=== PATIENT | female | born 1940 | race Caucasian/White ===

== ENCOUNTER 2016-11-09 21:14 | Inpatient (IN) | payer OTHER ==
--- NOTE | ~2016-11-09 | DS ---
Discharge Summary [facility] [address] [place]. [address] NAME: PENNIE EPPS : 39 STATUS : ADM IN PAT#: [id number] AGE: 76 ADM/REG DATE : 11/09/16 MR#: [id number] REPORT SERV DATE: 11/14/16 DICTATED BY: MARICHUY ALEXANDER DATE: 11/13/16 REPORT STATUS : Draft TRANSCRIBED BY: MODL DATE: 11/13/16 ADMISSION DATE: 11/09/2016 DISCHARGE DATE: 11/13/2016 CONSULTANTS: Cedric Lewis M.D., Neurology; Bartolo Haney M.D., Vascular Surgery. DISCHARGE DIAGNOSES: 1. Acute ischemic left thalamic stroke. 2. Diabetes mellitus type 2 with A1c 6.2%. 3. Hypertension. 4. Peripheral arterial disease with 70% stenosis, right internal carotid artery. 5. Status post repair of right hip fracture, August 2016. 6. Cigarette smoker. 7. Hypertension. HISTORY: This patient had in August 2016 surgery reportedly at [facility] for fractured right hip. She had gone to rehab. She then several days prior to this admission had some weakness, right upper and right lower extremity. Eventually was taken to the emergency room at [place] at [facility]. Imaging there included MRI of the brain, which revealed an acute infarction, lacunar-type left thalamus 5 x 7 mm, also more chronic appearing lacunar infarctions within the left thalamus and the right thalamus. No evidence for hemorrhage, mass effect, or midline shift. There was a request for the patient to transfer here to our facility. Here, she had a CTA of the neck revealing 70% stenosis of the proximal right internal carotid artery. No central stenosis involving. No significant stenosis involving the left carotid. The left vertebral was visualized. The right vertebral appeared to be occluded. Doppler of the carotid and vertebrals revealed category 2 of 50% to 69% stenosis of the right carotid. 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 Left carotid, category 1 disease, less than 50% stenosis. The left vertebral was antegrade. Dr. Bartolo Haney saw the patient, recommended outpatient followup with him in his office, did not recommend any surgical intervention at this time as right carotid stenosis would not be involved with this left brain stroke. The patient's total cholesterol 202, HDL 50, LDL 110, triglycerides 212. Her A1c was 6.2%. She was seen by Dr. Lewis of Neurology and recommended to continue on aspirin. She also recommended that the patient have Plavix added. She also recommended the patient to discontinue smoking. Echocardiogram has been ordered. Rehab planning is in process. DISCHARGE MEDICATIONS: Lotrel 06/28 once a day, aspirin 81 mg daily, Lipitor 80 mg at bedtime, Plavix 75 mg daily, Colace 100 mg at bedtime, hydrochlorothiazide 25 mg daily, level 1 NovoLog before meals and h.s., multivitamin once a day, Tylenol 650 q.6 hours p.r.n. pain, metformin 1000 mg b.i.d. with meals, PreserVision AREDS soft gel one every evening. Discharge Summary [address] [address] NAME: PENNIE EPPS : 39 STATUS : ADM IN [facility]#: [id number] AGE: 76 ADM/REG DATE : 11/09/16 MR#: [id number] REPORT SERV DATE: 11/14/16 DICTATED BY: MARICHUY ALEXANDER DATE: 11/13/16 REPORT STATUS : Draft TRANSCRIBED BY: SUE DATE: 11/13/16 I spent 35 minutes today with the patient and with Case Management and with discharge planning. The patient could tell me the PCP's name. MARINA/SUE Marichuy Alexander M.D. / [id number] CC: Litzy Akhtar M.D. [facility]
--- NOTE | ~2016-11-09 | DS ---
Discharge Summary [place] [id number] [facility] [place]. [address] NAME: PENNIE EPPS : 39 STATUS : DIS IN PAT#: [id number] AGE: 76 ADM/REG DATE : 11/09/16 MR#: [id number] REPORT SERV DATE: 11/16/16 DICTATED BY: MARICHUY ALEXANDER DATE: 11/15/16 REPORT STATUS : Draft TRANSCRIBED BY: MODL DATE: 11/15/16 ADMISSION DATE: 11/09/2016 DISCHARGE DATE: 11/15/2016 Please refer to yesterday's full discharge summary. The patient's discharge was delayed by their insurance requiring further authorizations. Now, final approval has been granted, and the patient is going to rehab with all the orders as per my discharge summary from yesterday. I spent 16 minutes today with the patient with case management and discharge planning. MARINA/USE Marichuy Alexander M.D. / [id number] CC: Marichuy Alexander M.D.
--- NOTE | ~2016-11-09 | DS ---
Discharge Summary [facility] [address] [place]. [address] NAME: PENNIE EPPS : 39 STATUS : ADM Kaye PAT#: [id number] AGE: 76 ADM/REG DATE : 11/09/16 MR#: [id number] REPORT SERV DATE: 11/13/16 DICTATED BY: JIA COBOS DATE: 11/12/16 REPORT STATUS : Draft TRANSCRIBED BY: MODAlessandra DATE: 11/12/16 ADMISSION DATE: 11/09/2016 DISCHARGE DATE: Date of transfer to inpatient rehab 11/12/2016. CONDITION ON DISCHARGE: Stable. CONSULTS OBTAINED DURING HOSPITALIZATION: Include Neurology consult. DIAGNOSES ON DISCHARGE: 1. Acute cerebrovascular accident on the left side resulting in right-sided weakness. The patient has had an acute left thalamic stroke with a 3-day history prior to admission that has left her with right-sided hemiparesis. 2. Bilateral carotid stenosis even after bilateral carotid endarterectomy. Now, the right carotid artery is again blocked with 70% stenosis as the patient continues to smoke. Vascular surgery has evaluated and no acute intervention planned at this time. 3. Status post right hip replacement recently. 4. Poorly controlled hypertension. 5. Diabetes mellitus. 6. Peripheral vascular disease status post femoropopliteal bypass in the past. BRIEF HOSPITAL COURSE: The patient is a 76-year-old white female patient, who was brought in because of right-sided weakness and near fall. The patient had already had a right hip replacement hence family did not think much of it and brought her in 3 days later. The patient initially was taken to [facility] where they found a questionable left thalamic stroke. This was subsequently confirmed and the patient indeed has an acute CVA in the left thalamus resulting in right hemiparesis. The patient did not experience any significant dysarthria or dysphagia or aphasia luckily with this. Hence, the patient is able to eat soft mechanical diet with aspiration precautions. She was admitted to [address] [place] [address] and Neurology was consulted. The patient was started on Plavix 75 mg and Lipitor 80 mg once a day and she was given symptomatic and supportive care. She was stabilized. Her condition has started improving a little while in the hospital and she is continuing to get PT and OT while in the hospital. The recommendation is for her to go to an inpatient rehab at this time. Hence, she is being sent to inpatient rehab after consulting Vascular Surgery and Neurology. The patient has been strongly advised to stop smoking and she states that this is the last cigarette that she has ever had and will definitely stop smoking. This is a big risk factor reduction. In addition to this, her home medications will be continued but we are also going to go ahead and add 75 mg of Plavix to her 81 mg of aspirin and also give her Lipitor 80 mg for maximum risk reduction. The patient will continue to take the following medications at home or while in rehab. She will continue metformin 1000 mg once a day, HCTZ 25 mg once a day, amlodipine, benazepril, Lotrel 10/20 once a day, and Mobic 7.5 mg once a day. I have the following significant labs on this patient. Upon discharge. Discharge Summary [address] [place]. [address] NAME: PENNIE EPPS : 39 STATUS : ADM Kaye PAT#: [id number] AGE: 76 ADM/REG DATE : 11/09/16 MR#: [id number] REPORT SERV DATE: 11/13/16 DICTATED BY: JIA COBOS DATE: 11/12/16 REPORT STATUS : Draft TRANSCRIBED BY: SUE DATE: 11/12/16 CBC on November 12 shows a completely normal CBC. Electrolyte profile shows a completely normal electrolyte profile with normal BUN and creatinine. Hemoglobin A1c at this time shows it is 6.2, reflecting fairly well-controlled diabetes mellitus. Imaging studies that she has had during hospitalization include the following. CTA of the neck shows that she does have a 70% stenosis in the ICA on the right side and hence, the reason for vascular surgery consult who saw the patient and decided on no acute intervention at this time. The patient has also had a lipid profile while in the hospital and this shows that her LDL is 110. Hence, the reason for adding Lipitor and maximizing the dose to 80 mg to maximize risk reduction in this patient. Hence, she is being transferred to inpatient rehab in stable condition. I have spent about 40 minutes in coordinating discharge care of this patient including face- to-face encounter and summarizing this discharge. TIFFANY/SUE Jia Cobos M.D. / [id number] CC: Jia Cobos M.D. NO PCP
--- NOTE | ~2016-11-09 | DS ---
Discharge Summary [facility] [address] [place]. [address] NAME: PENNIE EPPS : 39 STATUS : ADM IN PAT#: [id number] AGE: 76 ADM/REG DATE : 11/09/16 MR#: [id number] REPORT SERV DATE: 11/15/16 DICTATED BY: MARICHUY ALEXANDER DATE: 11/14/16 REPORT STATUS : Draft TRANSCRIBED BY: MODL DATE: 11/14/16 ADMISSION DATE: 11/09/2016 DISCHARGE DATE: DATE OF DISCHARGE: 11/14/2016. CONSULTANTS: Dr. Cedric Lewis, neurology; Dr. Bartolo Haney, vascular surgery. DISCHARGE DIAGNOSES: 1. Acute ischemic left thalamic stroke. 2. Diabetes mellitus type 2 with A1c 6.2%. 3. Hypertension. 4. Peripheral arterial disease with 70% stenosis of the right internal carotid and poor flow right vertebral artery. 5. History of hip fracture repair right side, August 2016. 6. Cigarette smoker. HISTORY: This patient in August 2016 had a surgical repair for a fracture of the right hip at [facility]. She had gone to [facility] in [place]. Then, she was back at home, and several days prior to this admission, there was some weakness of the right upper and right lower extremity. Eventually, she was taken to the emergency room at [facility] where they performed an MRI of the brain on 11/23 showing acute infarction lacunar type, left thalamus, 5 x 7 mm. No hemorrhage. Also chronic appearing lacunar infarctions in the left thalamus and right thalamus. They requested transfer to our facility. Here, she had a CT of the neck revealing 70% stenosis of the proximal right internal carotid artery. No left-sided carotid stenosis of any significance. The left vertebral was visualized. The right vertebral appeared to be occluded. Doppler of the carotids and vertebrals revealed category 2 disease, 50 to 69% stenosis of the right internal carotid. 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 The left carotid had category 1 disease with less than 50% stenosis. Left vertebral was antegrade. Dr. Bartolo Haney saw the patient, recommended outpatient followup, and did not recommend any surgical intervention. The patient and daughter today state that she has been seen by Dr. Willson in the past, and he has done procedures on her in the past, and they want to see him in followup. While here, her total cholesterol 202, HDL 50, LDL 110, triglycerides 212. A1c 6.2%. Echocardiogram showing low normal ejection fraction of 41%. Left atrial size of 3.7 cm. She was seen by Neurology, Dr. Lewis who recommended aspirin and addition of Plavix. She also recommended discontinuation of smoking, and I have discussed that with the patient and daughter also. The daughter states she herself was a smoker, and she is going to try to stop smoking as well. Discharge medications will include Lotrel 06/28 once a day, Coreg 3.125 mg p.o. b.i.d., Discharge Summary [address] [address] NAME: PENNIE EPPS : 39 STATUS : ADM IN [facility]#: [id number] AGE: 76 ADM/REG DATE : 11/09/16 MR#: [id number] REPORT SERV DATE: 11/15/16 DICTATED BY: MARICHUY ALEXANDER DATE: 11/14/16 REPORT STATUS : Draft TRANSCRIBED BY: SUE DATE: 11/14/16 aspirin 81 mg daily, Lipitor 80 mg at bedtime, Plavix 75 mg daily, Colace 100 mg at bedtime, hydrochlorothiazide 25 mg daily, NovoLog level 1 a.c. and h.s., multivitamin once a day, Tylenol 650 q.6 hours p.r.n. pain or fever, metformin 1000 mg b.i.d. with meals, PreserVision AREDS soft gel one every evening, Dulcolax 1 tablet p.o. daily, hold for diarrhea. She is to follow up with Dr. Willson of vascular after she gets out of the rehab. She has a new PCP in the [facility], Dr. Howard. The family does not know the full name. I spent 40 minutes today with the patient and with the nurse and with the supportive employment case manager and with the daughter at the bedside. MARINA/SUE Marichuy Alexander M.D. / [id number] CC: Litzy Akhtar MD Christopher Lesar, M.D. [facility]
--- NOTE | ~2016-11-09 | HP ---
History And Physical [address] [address] NAME: PENNIE EPPS : 39 STATUS : ADM Kaye PAT#: [id number] AGE: 76 ADM/REG DATE : 11/09/16 MR#: [id number] REPORT SERV DATE: 11/09/16 DICTATED BY: SAMMY YOUSIF DATE: 11/09/16 REPORT STATUS : Draft TRANSCRIBED BY: MODL DATE: 11/09/16 DATE OF ADMISSION: 11/09/2016 CHIEF COMPLAINT: Right-sided weakness. HISTORY OF PRESENT ILLNESS: This is a 76-year-old lady with history of hypertension, diabetes, peripheral artery disease, and smoking, presenting with a right-sided weakness. The patient apparently developed slight right-sided weakness of both upper and lower extremities since about three days ago. The patient was also episodically complaining of headaches for the past three days. The patient does have a broken right hip status post replacement in August and thus the family was not all that concerned when she was limping. Also, the patient did not want to be transferred to the hospital. However, after 3 days of persistent right-sided weakness and headaches, the daughter brought her to [facility] [place] ER for further evaluation and care. At the ER in [facility], the patient was found to be afebrile and hemodynamically stable. Initial lab evaluation was all very benign. MRI then revealed an acute infarct in left thalamus. Transfer request was made to our facility for further evaluation and care. REVIEW OF SYSTEMS: The patient denies any fevers or chills. Also, 14-point review of systems reviewed and negative other than mentioned above. MEDICATIONS: 1. Lotrel 06/28 one capsule p.o. q.a.m. 2. Aspirin 81 mg p.o. q.a.m. 3. Colace 100 mg p.o. at bedtime. 4. Hydrochlorothiazide 25 mg p.o. q.a.m. 5. Mobic 7.5 mg p.o. q.p.m. 6. Metformin 1000 mg p.o. q.a.m. 7. Multivitamin one tab p.o. q.a.m. 8. PreserVision one capsule p.o. q.p.m. ALLERGIES: INFLUENZA VIRUS VACCINES. PAST MEDICAL HISTORY: 1. Hypertension. 2. Diabetes type 2. 3. Peripheral artery disease. PAST SURGICAL HISTORY: 1. Right hip replacement three months ago in August. 2. Appendectomy. 3. Hysterectomy. 4. Cholecystectomy. 5. Right leg stent. 6. Carotid stents bilaterally. History And Physical [address] [address] NAME: PENNIE EPPS : 39 STATUS : ADM Kaye PAT#: [id number] AGE: 76 ADM/REG DATE : 11/09/16 MR#: [id number] REPORT SERV DATE: 11/09/16 DICTATED BY: SAMMY YOUSIF DATE: 11/09/16 REPORT STATUS : Draft TRANSCRIBED BY: SUE DATE: 11/09/16 FAMILY HISTORY: 1. Heart diseases. 2. Hypertension. 3. Diabetes. 4. Pancreatic cancer. SOCIAL HISTORY: The patient smokes about 1-1/2 pack of cigarettes on daily basis. The patient does not drink alcohol or use any illicit drugs. The patient lives at home with her daughter who is here at bedside. PHYSICAL EXAMINATION: NEUROLOGIC: The patient is alert and oriented x3 with no focal neurologic deficits other than already known right-sided weakness. The patient actually has pretty decent strength in her right side 4/5. The patient otherwise has intact cranial nerves 2-12. GENERAL: The patient is awake, does not appear to be in acute distress, and she is cooperative. NECK: No JVD. No lymphadenopathy. Normal thyroid. CHEST: No midline sternotomy scar and no tenderness to palpation. LUNGS: The patient has wheezes bilaterally, but otherwise, she has fairly normal respiratory effort on 2 L of oxygen per nasal cannula. CARDIOVASCULAR: Regular rate and rhythm with no murmurs, rubs, or gallops, and PMI is nondisplaced. ABDOMEN: Soft, nontender, with active bowel sounds and no organomegaly. EXTREMITIES: No edema. Normal distal pulses. No calf tenderness. SKIN: Clean, dry, warm, and intact. LABORATORY DATA: Sodium is 134, potassium 3.6, chloride 96, BUN 17, creatinine 0.83, glucose 174, hemoglobin A1c was 6.0. LFTs within normal limits. Troponin was less than 0.03. CBC; white blood cell count is 7.4, hemoglobin 13.4, and platelets 323. Chest x-ray report was benign and CT of the head apparently was nonacute. MRI apparently showed acute infarct on the left thalamus based on exam at [facility]. ASSESSMENT AND PLAN: This is a 76-year-old lady with history of hypertension, diabetes, peripheral artery disease, and smoking, presenting with an acute left thalamic stroke. 1. Acute left thalamic stroke with right-sided weaknesses. 2. Smoking. 3. Hypertension. 4. Diabetes type 2. 5. Peripheral artery disease, status post bilateral carotid stents and a right leg stent. PLAN: The plan is to admit the patient under telemetry monitoring. The patient will be monitored under neurologic monitoring per protocol. The patient has been on aspirin and thus she will be given Plavix therapy on top of the aspirin that she is on at home. The patient will also be started on statin therapy. The patient will be seen by Neurology, and the patient will also be seen by Physical Therapy as well as occupational therapy. I will check serial troponins and lipid panel and I will also check CT angio of her neck. For History And Physical [address] [address] NAME: PENNIE EPPS : 39 STATUS : ADM Kaye PAT#: [id number] AGE: 76 ADM/REG DATE : 11/09/16 MR#: [id number] REPORT SERV DATE: 11/09/16 DICTATED BY: SAMMY YOUSIF DATE: 11/09/16 REPORT STATUS : Draft TRANSCRIBED BY: SUE DATE: 11/09/16 smoking cessation, counseling was provided. Otherwise, for the rest of stable past medical conditions, including hypertension, diabetes, peripheral artery disease, et al, I will continue home medications. Standard DVT prophylaxis. The patient is full code at this time. DONAL/SUE Sammy Yousif MD / [id number] CC: Dr. Howard
--- NOTE | ~2016-11-09 | CN ---
Consultation Report [facility] [address] [place]. [address] NAME: PENNIE EPPS : 38 STATUS : ADM Kaye PAT#: [id number] AGE: 76 ADM/REG DATE : 11/09/16 MR#: [id number] REPORT SERV DATE: 11/11/16 DICTATED BY: CEDRIC LEWIS DATE: 11/11/16 REPORT STATUS : Draft TRANSCRIBED BY: MODAlessandra DATE: 11/11/16 NEUROLOGICAL CONSULTATION-EVALUATION DATE OF CONSULTATION: 11/11/2016 HISTORY OF PRESENT ILLNESS: Mrs. Epps is a 76-year-old female, who was transferred to this facility from [facility] where she was evaluated in the emergency room for a 3-day history of right-sided weakness. The patient described having gradual onset of right-sided weakness and increased difficulty walking, which was noted by the patient's family. She was eventually convinced to go to the local hospital. At the [facility], the patient had an MRI of the brain, which was reported to show left thalamic acute ischemic stroke. The patient was transferred to this facility. The patient's symptoms have not worsened since admission. The patient denied prior history of TIA or CVA. PAST MEDICAL HISTORY: Significant for history of hypertension, diabetes mellitus, peripheral vascular disease, recent fracture of the right hip in August of this year with status post rehabilitation. The patient has a history of chronic tobacco abuse. SOCIAL HISTORY: The patient smokes one pack of cigarettes per day. Lives with her daughter who is also a smoker. She is in addition exposed to secondhand smoke. The patient denied use of alcohol. She is retired. ALLERGIES: NO KNOWN ALLERGY. PAST SURGICAL HISTORY: History of bilateral carotid endarterectomies; femoral bypass, history of peripheral vascular disease. MEDICATIONS: Prior to admission included: Amlodipine and benazepril 5-10 mg daily, aspirin 81 mg daily, hydrochlorothiazide 25 mg p.o. daily, metformin 1000 mg p.o. daily, Colace 100 mg p.o. daily. FAMILY HISTORY: Significant for history of hypertension. The patient is not aware of anyone having history of stroke. REVIEW OF SYSTEMS: A 14-point review of systems was positive for gradual onset of right-sided weakness, increased difficulty walking. As per patient, she has had balance problems for "a long time prior to her hip fracture, which occurred in August." The patient has had exercise intolerance, increased shortness of breath on exertion. No orthopnea; however, has frequent arousals at night, and denied having being tested for obstructive sleep apnea. The patient stated that following her endarterectomy surgery, she is not sure which surgery was performed, the first left or the right. One was performed in the [facility] many Consultation Report [facility] [id number] [place]. [address] NAME: PENNIE EPPS : 39 STATUS : ADM Kaye PAT#: [id number] AGE: 76 ADM/REG DATE : 11/09/16 MR#: [id number] REPORT SERV DATE: 11/11/16 DICTATED BY: CEDRIC LEWIS DATE: 11/11/16 REPORT STATUS : Draft TRANSCRIBED BY: SUE DATE: 11/11/16 years ago and the other endarterectomy was done at [facility]. Following that surgery, the patient had problems with her vocal cords. The patient stated she has a recent increase of cough. Stated she has "cold." Denied chest pain, episodes of syncope. Denied history of head trauma. Denied recent travel outside of this area. Denied recent weight loss. The patient admitted to having increased constipation and decreased appetite. The MRI performed at the [facility] showed as per report, lacunar-type infarction involving left thalamus measuring 5 mm x 7 mm. More chronic-appearing lacunar infarctions were also seen in the left thalamus and the right thalamus. No evidence of hemorrhage, mass, or midline shift. The white matter changes were consistent with chronic small vessel ischemic disease. No vascular studies were obtained at that facility. PHYSICAL EXAMINATION: GENERAL: The patient was alert and cooperative. Did not appear in acute distress. VITAL SIGNS: Blood pressure of 180/73, prior blood pressure 139/63; pulse was 74; respirations 18; temperature was 97.9. HEAD AND NECK: Examination showed head to be normocephalic. There was no evidence of trauma. The patient is status post bilateral carotid endarterectomy. Old postsurgical well healed scars were noted. Auscultation of her neck showed bilateral carotid bruits. It did not represent a referred cardiac murmur. No thyromegaly or lymphadenopathy noted. No JVD present. EYE EXAM: Sclerae were anicteric. Conjunctivae were pink. ENT: Exam showed tongue to be midline. The patient had a small airway, Mallampati class 3- 4. Neck was supple. There was no Kernig or Brudzinski. CHEST: Symmetrical. Expiratory rhonchi were noted on auscultation of her chest. Auscultation of the heart did not show any murmurs or rubs. Her second heart sound appeared slightly increased. ABDOMEN: Soft, nontender. No organomegaly. Bowel sounds were present. EXTREMITIES: Showed no clubbing or cyanosis. There was no peripheral edema. The patient is status post bilateral femoral artery surgery. Old postsurgical scars are well healed. SKIN: No ecchymosis, petechiae, hemorrhages, or rashes. NEUROLOGICAL EXAMINATION: Mental Status Exam: The patient was alert oriented x3. Her speech was fluent. There was no evidence of aphasia or dysarthria. The patient's thought content and mood were appropriate. The patient provided her history appropriately and did not show significant evidence of cognitive dysfunction. She appeared to have good insight. Cranial Nerve Examination II Through XII: Visual rodriguez on confrontation were intact. Funduscopic exam showed no AV nicking or arterial narrowing. Pupils were 3 mm, reacted to light and accommodation. Extraocular movements were full. There was no gaze impersistence and no ophthalmoplegia. No dysconjugate gaze was noted. Upper and downward gaze was not limited. Minimal right facial weakness was seen when the patient was sitting up and standing, it was barely noticeable when the patient was supine in bed. The rest of cranial nerve examination was normal. Tongue was midline. No atrophy or fibrillations were noted. Palate elevated Consultation Report [place] [id number] [facility] [place]. [address] NAME: PENNIE EPPS : 38 STATUS : ADM Kaye PAT#: [id number] AGE: 76 ADM/REG DATE : 11/09/16 MR#: [id number] REPORT SERV DATE: 11/11/16 DICTATED BY: CEDRIC LEWIS DATE: 11/11/16 REPORT STATUS : Draft TRANSCRIBED BY: MODAlessandra DATE: 11/11/16 symmetrically. Sternocleidomastoid and trapezius muscles were normal. Motor Exam: Muscle bulk and tone on the left were normal. On the right, the patient appeared to have right pronator drift and weakness, appeared to be slightly more pronounced distally than proximally, in the left arm and leg approximately 4+/5. Babinski signs were not elicitable. Sensory Exam: Showed decreased sensation in the right arm, leg, and face. In addition, the patient had signs of distal peripheral neuropathy involving both lower extremities to light touch, temperature, vibration and position sense. Cerebellar Exam: On [id number], showed mild decrease of coordination bilaterally; however, more pronounced on the right. No true ataxia noted. The patient had good truncal stability with sitting and standing. Romberg test was positive and the patient had hemiparetic gait on the right. LABORATORY STUDIES: Sodium 135, potassium 4, chloride 97, BUN 23, creatinine 1.13, glomerular filtration 54, glucose 118. WBC count 6.9, hemoglobin 12.9, hematocrit 39.0, platelet count 413,000. PT/INR 1. CPK of 40, CK-MB 1.2. IMPRESSION: Acute left thalamic stroke, presenting with a 3-day history prior to admission to the [facility]. The patient was transferred to this facility for continued care. The patient's imaging studies showed left thalamic stroke. In addition, the patient had evidence of previous old ischemic changes affecting right thalamus and subcortical areas suggestive of microvascular disease. The patient has markedly increased risk for recurrent stroke, which includes poorly controlled hypertension, history of diabetes mellitus with questionable control, history of chronic tobacco abuse, history of peripheral vascular disease. In addition, the patient may have obstructive sleep apnea, which should be investigated on an outpatient basis. CTA study showed signs of a 70% stenosis of right internal carotid artery. Recommend vascular evaluation and treatment if appropriate. Recent August history of right hip fracture. The patient probably has underlying osteoporosis secondary to her multiple comorbidities and also chronic tobacco abuse. She has increased risk of falling and injury. Recommended for the patient to be evaluated by PT. The patient would be a good candidate for rehabilitation. Stroke education, smoking cessation, and the stroke risk factors were discussed at length with the patient and should be stressed to her prior to her discharge. The patient lives with her daughter who is also a smoker; therefore may be exposed to secondhand smoke after she returns from her rehab. This should be discussed with the patient's daughter. Would recommend to continue small dose of aspirin 81 mg. Add Plavix 75 mg. The patient's creatinine is 1.13, glomerular filtration 54, it should be monitored. The patient is showing signs of decreased weight. Her weight is 67.13. She is approximately 5 feet 7 inches. Should have a nutritional consult prior to discharge to address diabetic teaching and proper nutrition. I would recommend to obtain vitamin D, serum vitamin B12 and folate level. Diabetes mellitus with complications. The patient is showing signs of peripheral Consultation Report [address] [place]. [address] NAME: PENNIE EPPS : 38 STATUS : ADM Kaye PAT#: [id number] AGE: 76 ADM/REG DATE : 11/09/16 MR#: [id number] REPORT SERV DATE: 11/11/16 DICTATED BY: CEDRIC LEWIS DATE: 11/11/16 REPORT STATUS : Draft TRANSCRIBED BY: SUE DATE: 11/11/16 neuropathy, which appears to be symmetrically affecting her both lower extremities. The patient, therefore has markedly increased risk of falling and injury secondary to decreased balance from her stroke and the peripheral neuropathy. Outpatient bone density study is recommended. Vitamin D level prior to discharge is recommended. Thank you for allowing us to participate in this patient's care. UBALDO/SUE Cedric Lewis MD / [id number] CC: Rosmery Olivas M.D.
[~2016-11-09 21:14] MED LIST: ASAB PO; ESTRACE1 MG PO; GLUCPH PO; HCTZ25B PO; LOTREL1 CA4 PO
[2016-11-09] MEDS ORDERED: PRESERVISION A1 EACH PO (21:52)
[2016-11-09] MEDS ORDERED: MULTIVIT/MIN PO (21:52)
[2016-11-09] MEDS ORDERED: GLUCOPHAGE1000 MG PO (21:52)
[2016-11-09] MEDS ORDERED: DSS PO (21:53)
[2016-11-09] MEDS ORDERED: ASAB PO (21:53)
[2016-11-09] MEDS ORDERED: MOBIC7.5 PO (21:53)
[2016-11-09] MEDS ORDERED: LOTREL1 CA4 PO (21:53)
[2016-11-09] MEDS ORDERED: HYDROCHLOROT25 MG PO (21:53)
[2016-11-10 00:03] LABS: BASOPHILS 0.2 %; BASOPHILS ABSOLUTE 0.02 10/3/uL (0.0-0.16); EOSINOPHILS 1.6 %; EOSINOPHILS ABSOLUTE 0.14 10/3/uL (0.0-0.53); HEMATOCRIT 39.1 % (36.0-48.0); HEMOGLOBIN 13.1 g/dL (12.0-16.0); IMMATURE GRANULOCYTES 0.2 %; IMMATURE GRANULOCYTES ABSOLUTE 0.02 10/3/uL (0.0-0.11); LYMPHOCYTES 21.3 %; LYMPHOCYTES ABSOLUTE 1.92 10/3/uL (0.67-4.30); MEAN CORPUS HGB CONC 33.5 g/dL (32.0-36.0); MEAN CORPUSCULAR HEMOGLOB 29.6 pg (26.0-34.0); MEAN CORPUSCULAR VOLUME 88.5 fL (80-100); MEAN PLATELET VOLUME 8.9 fL (9.2-13.0); MONOCYTES 8.8 %; MONOCYTES ABSOLUTE 0.79 10/3/uL (0.21-1.20); NEUTROPHILS 67.9 %; NEUTROPHILS ABSOLUTE 6.11 10/3/uL (2.02-8.40); PLATELET COUNT 324 10/3/uL (150-400); RBC DISTRIBUTION WIDTH 13.4 % (12.0-16.0); RED CELL COUNT 4.42 10/6/uL (4.0-5.6)
[2016-11-10 00:04] LABS: MANUAL DIFF NO %
[2016-11-10 00:11] LABS: PROTIME (NOT ORD) 13.2 SEC (12.0-14.5)
[2016-11-10 00:32] LABS: ASCORBIC ACID (UR NOT ORDER) NEG (NEG); BILIRUBIN, URINE NEGATIVE (NEG); KETONE, URINE NEGATIVE (NEG); LEUKOCYTE ESTERASE(NOT OR SMALL (NEG); WBC (NOT ORDERED) (RFLEX) 13 (0-5)
[2016-11-10 04:52] LABS: CHOLESTEROL 202 MG/DL (< 200); CPK 47 U/L (0-200); HDL CHOLESTEROL 50 MG/DL (> 49); LDL CHOLESTEROL 110 MG/DL (< 130); NON-HDL CHOLESTEROL 152 MG/DL (< 160); TRIGLYCERIDE 212 MG/DL (< 150); TROPONIN I <0.02 NG/ML (<0.05)
[2016-11-10 04:53] LABS: CK-MB 1.1 NG/ML
[2016-11-10 08:33] LABS: CPK 35 U/L (0-200); TROPONIN I <0.02 NG/ML (<0.05)
[2016-11-10 15:51] LABS: CPK 40 U/L (0-200); TROPONIN I <0.02 NG/ML (<0.05)
[2016-11-10 15:52] LABS: CK-MB 1.2 NG/ML
[2016-11-11 07:43] LABS: BASOPHILS 0.1 %; BASOPHILS ABSOLUTE 0.01 10/3/uL (0.0-0.16); EOSINOPHILS 1.9 %; EOSINOPHILS ABSOLUTE 0.13 10/3/uL (0.0-0.53); HEMOGLOBIN 12.9 g/dL (12.0-16.0); IMMATURE GRANULOCYTES 0.1 %; IMMATURE GRANULOCYTES ABSOLUTE 0.01 10/3/uL (0.0-0.11); LYMPHOCYTES 27.3 %; LYMPHOCYTES ABSOLUTE 1.88 10/3/uL (0.67-4.30); MEAN CORPUS HGB CONC 33.1 g/dL (32.0-36.0); MEAN CORPUSCULAR HEMOGLOB 28.9 pg (26.0-34.0); MEAN CORPUSCULAR VOLUME 87.4 fL (80-100); MEAN PLATELET VOLUME 9.2 fL (9.2-13.0); MONOCYTES ABSOLUTE 0.62 10/3/uL (0.21-1.20); NEUTROPHILS 61.6 %; NEUTROPHILS ABSOLUTE 4.24 10/3/uL (2.02-8.40); PLATELET COUNT 413 10/3/uL (150-400); RBC DISTRIBUTION WIDTH 13.9 % (12.0-16.0); RED CELL COUNT 4.46 10/6/uL (4.0-5.6); WHITE BLOOD CELLS 6.9 10/3/uL (4.5-10.5)
[2016-11-11 07:45] LABS: MANUAL DIFF NO %
[2016-11-11 07:46] LABS: CALCIUM, SERUM 9.3 MG/DL (8.5-10.4); CHLORIDE, SERUM 97 MMOL/L (96-112); SODIUM, SERUM 135 MMOL/L (135-148)
[2016-11-11 07:48] LABS: BUN (BLOOD UREA NITROGEN) 23 MG/DL (6-23); CO2 (CARBON DIOXIDE) 28 MMOL/L (24-34); CREATININE 1.13 MG/DL (0.55-1.02); GFR AFRICAN AMERICAN 54 ML/MIN (>=60); GFR NON AFRICAN AMERICAN 47 ML/MIN (>=60); GLUCOSE, SERUM 118 MG/DL (60-99)
[2016-11-12 06:06] LABS: BASOPHILS 0.3 %; BASOPHILS ABSOLUTE 0.02 10/3/uL (0.0-0.16); EOSINOPHILS 3.7 %; EOSINOPHILS ABSOLUTE 0.24 10/3/uL (0.0-0.53); HEMATOCRIT 38.6 % (36.0-48.0); HEMOGLOBIN 12.9 g/dL (12.0-16.0); IMMATURE GRANULOCYTES 0.3 %; IMMATURE GRANULOCYTES ABSOLUTE 0.02 10/3/uL (0.0-0.11); LYMPHOCYTES ABSOLUTE 1.69 10/3/uL (0.67-4.30); MEAN CORPUS HGB CONC 33.4 g/dL (32.0-36.0); MEAN CORPUSCULAR HEMOGLOB 28.6 pg (26.0-34.0); MEAN CORPUSCULAR VOLUME 85.6 fL (80-100); MEAN PLATELET VOLUME 8.9 fL (9.2-13.0); MONOCYTES ABSOLUTE 0.78 10/3/uL (0.21-1.20); NEUTROPHILS 57.7 %; NEUTROPHILS ABSOLUTE 3.75 10/3/uL (2.02-8.40); PLATELET COUNT 326 10/3/uL (150-400); RBC DISTRIBUTION WIDTH 13.7 % (12.0-16.0); RED CELL COUNT 4.51 10/6/uL (4.0-5.6); WHITE BLOOD CELLS 6.5 10/3/uL (4.5-10.5)
[2016-11-12 06:08] LABS: MANUAL DIFF NO %
[2016-11-12 06:18] LABS: BUN (BLOOD UREA NITROGEN) 22 MG/DL (6-23); CALCIUM, SERUM 9.1 MG/DL (8.5-10.4); CHLORIDE, SERUM 97 MMOL/L (96-112); CO2 (CARBON DIOXIDE) 29 MMOL/L (24-34); CREATININE 0.98 MG/DL (0.55-1.02); GFR AFRICAN AMERICAN 64 ML/MIN (>=60); GFR NON AFRICAN AMERICAN 56 ML/MIN (>=60); GLUCOSE, SERUM 136 MG/DL (60-99); POTASSIUM, SERUM 3.8 MMOL/L (3.5-5.3); SODIUM, SERUM 135 MMOL/L (135-148)
== END 2016-11-15 15:06 | DRG 65 ==
LOC: 1SO 21:14
PROVIDERS: Internal Medicine
DX: I63.9 Cerebral infarction, unspecified (principal); G81.91 Hemiplegia, unspecified affecting right dominant side; E11.42 Type 2 diabetes mellitus with diabetic polyneuropathy; J44.9 Chronic obstructive pulmonary disease, unspecified; I10 Essential (primary) hypertension; I73.9 Peripheral vascular disease, unspecified; E78.5 Hyperlipidemia, unspecified; I65.23 Occlusion and stenosis of bilateral carotid arteries; K59.00 Constipation, unspecified; F17.210 Nicotine dependence, cigarettes, uncomplicated; Z87.81 Personal history of (healed) traumatic fracture; Z79.84 Long term (current) use of oral hypoglycemic drugs; Z79.82 Long term (current) use of aspirin; Z79.899 Other long term (current) drug therapy; Z88.7 Allergy status to serum and vaccine; Z79.1 Long term (current) use of non-steroidal anti-inflammatories (NSAID); Z96.641 Presence of right artificial hip joint; Z91.81 History of falling
CPT/HCPCS: 70498; 71020; 80048; 80061; 81001; 82550; 82553; 82962; 83036; 84484; 85025; 85610; 85730; 87077; 87086; 87186; 93005; 93306; 93880; 97110-GP; 97116-GP; 97162-GP; 97166-GO; 97535-GO; A9270-GY; G8978-CK-GP; G8979-CJ-GP; J0360; J2405; Q9967